=== PATIENT | female | born 1990 | race Caucasian/White ===

== ENCOUNTER 2018-10-17 05:39 | Outpatient (CLI) | payer OTHER ==
[~2018-10-17] VITALS: Ht 157.5 cm; Wt 87.1 kg
[2018-10-17] MEDS ORDERED: ACYC400T PO (10:47)
[2018-10-17] MEDS ORDERED: PARO40TA3 PO (10:47)
[2018-10-17] MEDS ORDERED: GABA-488 PO (10:47)
[2018-10-17] MEDS ORDERED: TRAM50TA2 PO (10:47)
[2018-10-17] MEDS ORDERED: CETI10TA17 PO (10:47)
[2018-10-17] MEDS ORDERED: OLAN5TAB3 PO (10:47)
== END 2018-10-17 10:48 | disposition home or self-care (01) ==
LOC: PREOP 05:39
PROVIDERS: ATTEND Surgery
DX: Z01.818 Encounter for other preprocedural examination (principal)

== ENCOUNTER 2018-10-25 07:19 | Day surgery (SDC) | payer OTHER ==
[~2018-10-25] VITALS: Ht 157.5 cm; Wt 87.1 kg
[~2018-10-25 07:19] MED LIST: ACYC400T PO; CETI10TA17 PO; GABA-488 PO; OLAN5TAB3 PO; PARO40TA3 PO; TRAM50TA2 PO
[2018-10-25 07:45] VITALS: BP 125/74
[2018-10-25 07:54] LABS: BASOPHILS % (AUTO) 0 % (0-10); EOSINOPHILS % (AUTO) 11 % (0-10); HEMATOCRIT 38 % (35-52); LYMPHOCYTES % (AUTO) 21 % (12-44); MEAN CORPUSCULAR HEMOGLOBIN 31 PG (25-34); MEAN CORPUSCULAR HGB CONC 35 G/DL (32-36); MEAN CORPUSCULAR VOLUME 89 FL (80-99); MEAN PLATELET VOLUME 8.9 FL (7.4-10.4); MONOCYTES # (AUTO) 0.9 X 10^3 (0.0-1.0); MONOCYTES % (AUTO) 9 % (0-12); NEUTROPHILS # (AUTO) 5.3 X 10^3 (1.8-7.8); NEUTROPHILS % (AUTO) 58 % (42-75); PLATELET COUNT 257 10^3/uL (130-400); RED CELL DISTRIBUTION WIDTH 13.3 % (10.0-14.5); WHITE BLOOD COUNT 9.2 10^3/uL (4.3-11.0)
[2018-10-25] MEDS ORDERED: SCOPOLAMINE 1.5 MG (TRANSDERM-SCOP) PATCH ONE (07:56)
[2018-10-25] MEDS ORDERED: FAMOTIDINE 20MG/2ML IV (PEPCID) ONE (07:57)
[2018-10-25] MEDS ORDERED: ceFAZolin 2 GM IV Premixed 50 ML ONE (07:57)
[2018-10-25] MEDS ORDERED: ONDANSETRON 4 MG/2 ML (SDV) Z0FRAN ONE (07:57)
[2018-10-25] MEDS ORDERED: ceFAZolin 2 GM IV Premixed 50 ML IV ONE (08:00)
[2018-10-25] MEDS ORDERED: SCOPOLAMINE 1.5 MG (TRANSDERM-SCOP) PATCH TOP ONE (08:15)
[2018-10-25] MEDS ORDERED: FAMOTIDINE 20MG/2ML IV (PEPCID) IV ONE (08:15)
[2018-10-25] MEDS ORDERED: ONDANSETRON 4 MG/2 ML (SDV) Z0FRAN IV ONE (08:15)
[2018-10-25] MEDS: LACTATED RINGERS 1,000 ML IV PRN ×2 (08:23→10:05)
[2018-10-25] MEDS ORDERED: fentaNYL INJECTION 100 MCG/2 ML AMP ONE ×2 (08:26→10:22)
[2018-10-25] MEDS ORDERED: PROPOFOL INJECTION 50 ML IV ONE (08:26)
[2018-10-25] MEDS ORDERED: DEXAMETHASONE 10 MG/ML (DECADRON) 1 ML VIAL ONE (08:26)
[2018-10-25] MEDS ORDERED: ROCURONIUM 10 MG/ML 5 ML SYRINGE IV ONE (08:26)
[2018-10-25] MEDS ORDERED: MIDAZOLAM 2 MG/2 ML (VERSED) VIAL ONE (08:26)
[2018-10-25] MEDS ORDERED: LIDOCAINE PF 2% 5 ML (XYLOCAINE) VIAL ONE (08:26)
--- NOTE | 2018-10-25 09:31 | Progress Note-Pre Operative ---
Pre-Operative Progress Note H&P Reviewed The H&P was reviewed, patient examined and no changes noted. Date Seen by Provider: Oct 25, 2018 Time Seen by Provider: 09:30 Date H&P Reviewed: Oct 25, 2018 Time H&P Reviewed: 09:31 Pre-Operative Diagnosis: INCISIONAL HERNIA GISELLE ROSARIO DO Oct 25, 2018 09:31
[2018-10-25] MEDS ORDERED: LIDOCAINE 1% INJ 20 ML 20 ML VIAL ONE (09:51)
[2018-10-25] MEDS: BUP/EPI 0.5% 1:200,000 (SENSORCAINE) 30 ML VIAL ONE (10:03)
[2018-10-25] MEDS ORDERED: PHENYLEPHRINE 100 MCG/ML 10 ML (ANESTHESIA) SYR ONE (10:15)
[2018-10-25] MEDS ORDERED: GLYCOPYRROLATE 0.2 MG/ML (ROBINUL) 2 ML VIAL ONE (10:59)
[2018-10-25] MEDS ORDERED: NEOSTIGMINE 1 MG/ML 5 ML SYRINGE ONE (10:59)
[2018-10-25] MEDS ORDERED: SEVOFLURANE (ULTANE) 15 ML INHAL SOLN ONE ×7 (11:10→11:16)
[2018-10-25] MEDS ORDERED: ONDANSETRON 4 MG/2 ML (SDV) Z0FRAN IVP PRN (11:30)
[2018-10-25] MEDS ORDERED: morphine INJ 10 MG/ML 1ML (SYR OR VIAL) IVP ONE (11:30)
[2018-10-25] MEDS ORDERED: HYDROmorphone 2 MG/ML VIAL (DILAUDID) IV ONE (11:30)
[2018-10-25] MEDS ORDERED: morphine INJ 10 MG/ML 1ML (SYR OR VIAL) ONE (11:31)
--- NOTE | 2018-10-25 11:40 | Progress Note-Post Operative ---
Post-Operative Progess Note Surgeon (s)/Advertising Display Rotator (s) Surgeon GISELLE ROSARIO DO Advertising Display Rotator: Dr. Hatfield Pre-Operative Diagnosis INCISIONAL HERNIA Post-Operative Diagnosis incarcerated incision hernia Procedure & Operative Findings Date of Procedure 10/25/18 Procedure Performed/Findings lap incarcerated incisional hernia repair Anesthesia Type gen Estimated Blood Loss Estimated blood loss (mL): min Specimens/Packing Specimens Removed hernia contents GISELLE ROSARIO DO Oct 25, 2018 11:40
[2018-10-25] MEDS ORDERED: DOCU-143 PO (11:45)
[2018-10-25] MEDS ORDERED: ACHD5005 PO (11:45)
--- NOTE | 2018-10-25 11:49 | Discharge Inst-Simple/Standard ---
Discharge Inst-Standard Discharge Medications New, Converted or Re-Newed RX: RX on Chart Patient Instructions/Follow Up Plan of Care/Instructions/FU: 2-3 weeks Alireza Activity as Tolerated: No Discharge Diet: Regular Diet Other Inst to Patient Follow up Appt: Make appointment for 2-3 week. Instructions: No lifting greater than 10 pounds. No strenuous activity. May shower in 24 hours, no tub bath or soaking. Use incentive spirometer at home as directed. No Smoking Skin/Wound Care: You have special glue over incisions it will fall off on its own. Symptoms to Report: Appetite Changes, Extremity Discoloration, Numbness/Tingling, Swelling Increased , Bleeding Excessive, Eyesight Changes, Pain Increased, Urine Color Change, Constipation(Persistent), Fever over 101 degree F, Pain/Pressure in chest, Urinating Difficulty, Cough Up/Vomit Blood, Heart Beat Irreg/Pounding, Pain/ Pressure in jaw, Vaginal Bleeding Increase, Cramps in feet or legs, Lightheadedness, Pain/Pressure in shoulder, Diarrhea(Persistent), Memory Changes Suddenly, Questions/Concerns, Weight gain consecutive days, Dizziness/ Fainting, Nausea/Vomiting, Shortness of Breath, Weight gain over 2 pounds If questions or concerns contact your physician Or seek help at emergency department. GISELLE ROSARIO DO Oct 25, 2018 11:49
[2018-10-25 12:55] VITALS: BP 126/102
[2018-10-25] MEDS ORDERED: HYDROcodone/APAP 5 MG/325 MG (LORTAB) TAB ONE (13:04)
--- NOTE | 2018-10-25 13:18 | Anesthesia-General Post-Op ---
General Patient Condition Mental Status/LOC: Same as Preop Cardiovascular: Satisfactory Nausea/Vomiting: Absent Respiratory: Satisfactory Pain: Controlled Complications: Absent Post Op Complications Complications None Follow Up Care/Instructions Patient Instructions None needed. Anesthesia/Patient Condition Patient Condition Patient is doing well, no complaints, stable vital signs, no apparent adverse anesthesia problems. No complications reported per nursing. ABDULLAHI LAMBERT CRNA Oct 25, 2018 13:18
[2018-10-25 13:25] VITALS: BP 123/62
[2018-10-25] MEDS ORDERED: HYDROcodone/APAP 5 MG/325 MG (LORTAB) TAB PO ONE (13:30)
[2018-10-25 13:55] VITALS: BP 125/70
[2018-10-25 14:25] VITALS: BP 125/70
--- NOTE | 2018-10-27 01:11 | OPERATIVE REPORT ---
DATE OF SERVICE: 10/25/2018 PREOPERATIVE DIAGNOSIS: Incisional hernia. POSTOPERATIVE DIAGNOSIS: Incarcerated incisional hernia x2. PROCEDURE: Laparoscopic incarcerated incisional hernia repair. SURGEON: Dr. Lay. RN INFORMATICS: Dr. Hatfield, assisted in retraction, dissection and closure. ANESTHESIA: General. ESTIMATED BLOOD LOSS: Minimal. COMPLICATIONS: None. 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 The patient developed incisional hernias. She understands risks and benefits of procedure and wished to proceed with procedure. Consent was signed on the chart. DESCRIPTION OF PROCEDURE: The patient was taken to the operating suite. She was prepped and draped in sterile fashion. Timeout was performed. Left upper quadrant, local anesthetic was infiltrated. An #11 blade scalpel was used to make a skin incision and cautery used to dissect down to the fascia, which was then scored, grasped the muscle was divided and the posterior fascia was then opened and a balloon trocar was inserted and pneumoperitoneum was achieved. Under direct visualization of the laparoscope, a 5 mm trocar was placed in the right upper quadrant and a 5 mm trocar was placed in left lower quadrant. There are two defects present. There is some fat that was incarcerated through both defects, which were taken down. Once the incarcerated fat was taken down, there was a larger defect superior of the very small defect inferior to this. A 0 Vicryl and Deacon-Ava was used to close the defect. Once the defect was closed, the LigaSure was also used to dissect the adhesions and take down the falciform ligament. A 20.3 cm x 15.2 cm Echo Ventralight mesh was inserted and the abdomen was grasped with a Deacon-Ava through a stab incision at the midline, which was then brought up the balloon was inflated and SecureStrap Tacker was used to make a circumferential tacking to hold the mesh in place. The balloon was then removed. An inner crown was created as well. This provided adequate coverage and mesh laid flat within the appropriate positioning. The fascial defect of the 12 mm trocar was then closed using 0 Vicryl. The abdomen was desufflated. Trocars were removed. The skin was then closed using 4-0 Monocryl in a subcuticular fashion. The abdomen was then washed and dried and Skin Affix was placed over the incisions. The patient tolerated procedure well without any complications. She was taken to the recovery room in stable condition. Job ID: [id number] DocumentID: [id number] Dictated Date: 10/26/2018 14:39:19 Pig Furnace Operator Date: 10/27/2018 01:10:07 Dictated By: DO HUY KELLOGG
== END 2018-10-25 14:35 | disposition home or self-care (01) ==
LOC: SDC 07:19
PROVIDERS: ATTEND Surgery
DX: K43.0 Incisional hernia with obstruction, without gangrene (principal); F32.9 Major depressive disorder, single episode, unspecified; E66.9 Obesity, unspecified; Z68.35 Body mass index [BMI] 35.0-35.9, adult; Z79.899 Other long term (current) drug therapy; Z85.89 Personal history of malignant neoplasm of other organs and systems
CPT/HCPCS: 36415; 84703; 85025; 87081; 88302

== ENCOUNTER → 2023-06-19 | Outpatient (CLI) | payer BC ==
[~2023-06-19] MED LIST changes: +ACHD5005 PO; -ACYC400T PO; +ACYC400T21 PO; +DOCU-143 PO; +RT-ALBUTEROL SULF 2.5 MG/3 ML PRE-MIX VIAL INH ONE; -TRAM50TA2 PO; +TRM50T PO
== END ==
LOC: RT 12:52
PROVIDERS: ATTEND Nurse Practitioner Family
DX: R05.3 Chronic cough (principal); R06.02 Shortness of breath
CPT/HCPCS: 94060; 94726; 94729